=== PATIENT | female | born 1980 | race Hispanic/Latino ===

== ENCOUNTER 2021-02-20 12:10 | Emergency (ER) | payer SELFPAY ==
[2021-02-20 12:40] VITALS: BP 119/94
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
[2021-02-20 14:00] LABS: Bacteria,Urine 1+ /HPF (Negative); Bilirubin,Urine NEG (Negative); Blood,Urine NEG (Negative); Color,Urine Straw (Yellow); Protein,Urine <15 mg/dL mg/dL (Negative); Urobilinogen,Urine < 2.0 mg/dL (<2.0)
[2021-02-20 14:38] LABS: HCG Qualitative,Urine Negative (Negative)
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
== END 2021-02-20 16:36 | disposition home or self-care (01) ==
LOC: ED 12:10
DX: N30.00 Acute cystitis without hematuria (principal); B37.89 Other sites of candidiasis; Z88.1 Allergy status to other antibiotic agents
CPT/HCPCS: 81001; 81025; 99283